=== PATIENT | male | born 1945 | race Caucasian/White ===

== ENCOUNTER 2017-06-27 05:09 | Observation (INO) | payer OTHER ==
[~2017-06-27] VITALS: Ht 170.2 cm; Wt 103.7 kg
[~2017-06-27 05:09] MED LIST: ALLOPURINOL300 MG PO; AMARYL4 MG PO; ASPIR-TRIN325 M1 PO; ASPIRIN EC325 MG PO; ASPIRIN325 MG PO; ASPIRIN81 M1 PO; ASPIRIN81 M2 PO; BENICAR HCT 201 EACH PO; BENICAR20 MG PO; CALCIUM 600 +1 EAC3 PO; CALCIUM PO; CARDURA4 MG PO; CENTRUM SILVER1 EAC3 PO; CINNAMON BARK500 MG PO; CINNAMON500 MG PO; Cinnamon Bark PO; DAILY VITAMIN1 EAC5 PO; ENDOCET 5-3251 EACH PO; Elavil PO; FIBER LAXATIVE500 MG PO; FIBER LAXATIVE625 M1 PO; FIBER500 MG PO; FISH OIL 1,2001 EAC4 PO; FLOMAX0.4 MG PO; GABAPENTIN300 MG PO; HYDROCODON-ACE1 EAC7 PO; HYDRODIURIL,O12.5 M2 PO; IRON325 M1 PO; LANTUS 3 M100 UNITS/ SC; LANTUS 3 M100 UNITS1 SC; LEVEMIR FL100 UNIT/1 SC; LIPITOR40 MG PO; LISINOPRIL-HCT1 EAC3 PO; LISINOPRIL10 MG PO; LYRICA75 MG PO; NEURONTIN300 MG PO; NEURONTIN600 MG PO; NOVOLOG PE100 UNITS/ SC; OMEPRAZOLE40 M1 PO; OXYCODONE HCL5 MG PO; Oyst-Cal D, Oscal W/ PO; PERCOCET 5/31 TABLET PO; PREDNISONE1 MG PO; PROAIR HFA8.5 GM IH; PROZAC20 MG PO; Prozac PO; SENOKOT S,PE1 TABLET PO; SPIRIVA1 INHALATI IH; ST. JOSEPH ASPI81 MG PO; SYNTHROID50 MCG PO; TARKA PO; TOPAMAX25 MG PO; TRADJENTA5 MG PO; TRAMADOL HCL100 MG PO; TRAMADOL HCL50 MG PO; Tylenol Regular Stre PO; VERAPAMIL HCL180 MG PO; VITAMIN D1000 INTUN PO; Zyloprim PO
[2017-06-27 05:59] LABS: HEMATOCRIT 32.5 % (38.0-50.0); MCH 31.1 PG (29.0-34.0); MCHC 32.6 G/DL (30.0-36.0); MCV 95.3 FL (86-99); MEAN PLAT.VOLUME 8.7 uM^3 (9.0-12.4); PLATELET COUNT 312 K/uL (156-360); RBC DIS.WIDTH-CV 12.9 % (11.8-14.6); RBC DIS.WIDTH-SD 44.8 % (39-53); RED BLOOD COUNT 3.41 M/uL (4.00-5.50); WHITE BLOOD COUNT 12.2 K/uL (4.1-10.2)
[2017-06-27 06:13] LABS: CHLORIDE 105 mEq/L (99-109); POTASSIUM 3.5 mEq/L (3.7-5.4); SODIUM 142 mEq/L (136-147)
[2017-06-27 06:16] LABS: GLUCOSE 62 mg/dL (70-99)
[2017-06-27 06:17] LABS: ANION GAP 10 MEQ/L (2-14)
[2017-06-27 06:18] LABS: TOTAL BILIRUBIN 0.6 mg/dL (0.0-1.0)
[2017-06-27 06:19] LABS: ALKALINE PHOSPHATASE 123 IU/L (3-129); GFR ESTIMATE (CALCULATED) 58 mL/min/
[2017-06-27 06:20] LABS: UREA NITROGEN (BUN) 30 mg/dL (9-23)
[2017-06-27 06:21] LABS: PROTHROMBIN TIME 11.2 SEC (10.2-12.9); TROP-I INTERPRETATION NEGATIVE; TROPONIN-I < 0.01 ng/mL (0.0-0.30)
[2017-06-27 06:23] LABS: LIPASE 64 U/L (1.0-51.0); PTT 30.2 SEC (25-37)
[2017-06-27] MEDS ORDERED: LEVEMIR FL100 UNIT/1 SC ×2 (09:02)
[2017-06-27] MEDS ORDERED: NOVOLOG PE100 UNITS/ SC (09:03)
[2017-06-27] MEDS ORDERED: TOPIRAMATE25 MG PO (09:05)
[2017-06-27] MEDS ORDERED: FLUOXETINE HCL20 MG PO (09:05)
[2017-06-27 09:33] LABS: POINT-OF-CARE METER ID UU14100415
[2017-06-27 09:54] VITALS: BP 140/68
[2017-06-27 11:23] VITALS: BP 126/59
[2017-06-27 12:33] LABS: POINT-OF-CARE METER ID UU13113700
[2017-06-27 13:12] LABS: TROP-I INTERPRETATION NEGATIVE; TROPONIN-I < 0.01 ng/mL (0.0-0.30)
[2017-06-27 16:11] VITALS: BP 117/78
[2017-06-27 17:21] LABS: POINT-OF-CARE METER ID UU13113700
[2017-06-27 18:59] LABS: TROP-I INTERPRETATION NEGATIVE; TROPONIN-I < 0.01 ng/mL (0.0-0.30)
[2017-06-27 19:48] VITALS: BP 148/67
[2017-06-27 21:04] LABS: POINT-OF-CARE METER ID UU13113700
[2017-06-27 23:53] VITALS: BP 143/61
[2017-06-28 04:03] VITALS: BP 109/51
[2017-06-28 05:19] LABS: HEMATOCRIT 29.8 % (38.0-50.0); MCH 31.7 PG (29.0-34.0); MCHC 33.2 G/DL (30.0-36.0); MCV 95.5 FL (86-99); PLATELET COUNT 287 K/uL (156-360); RBC DIS.WIDTH-CV 12.9 % (11.8-14.6); RBC DIS.WIDTH-SD 44.7 % (39-53); RED BLOOD COUNT 3.12 M/uL (4.00-5.50); WHITE BLOOD COUNT 9.2 K/uL (4.1-10.2)
[2017-06-28 06:03] LABS: ANION GAP 9 MEQ/L (2-14); CHLORIDE 107 MEQ/L (99-109); GFR ESTIMATE (CALCULATED) 49 mL/min/; POTASSIUM 3.9 MEQ/L (3.7-5.4); SAMPLE HEMOLYSIS CHECK 0; SAMPLE ICTERIC CHECK 0; SAMPLE LIPEMIA CHECK 0; SODIUM 142 MEQ/L (136-147); UREA NITROGEN (BUN) 27 mg/dL (9-23)
[2017-06-28 06:08] LABS: GLUCOSE 123 mg/dL (70-99)
[2017-06-28 07:35] VITALS: BP 125/61
[2017-06-28 12:29] VITALS: BP 122/59
== END 2017-06-28 13:00 | disposition home or self-care (01) ==
LOC: EME → EDBD 05:09 → EME 05:09 → EDOF 08:40 → 5WEST 08:40 → ENRESERV 08:44 → 5WEST 09:40
PROVIDERS: Emergency Medicine; Internal Medicine
DX: R07.9 Chest pain, unspecified (principal); E11.9 Type 2 diabetes mellitus without complications; Z79.4 Long term (current) use of insulin; D64.9 Anemia, unspecified; D72.829 Elevated white blood cell count, unspecified; I10 Essential (primary) hypertension; J45.909 Unspecified asthma, uncomplicated; G89.29 Other chronic pain; M54.5 Low back pain; F43.10 Post-traumatic stress disorder, unspecified; M48.02 Spinal stenosis, cervical region; G47.30 Sleep apnea, unspecified; Z87.820 Personal history of traumatic brain injury; Z96.651 Presence of right artificial knee joint; R68.84 Jaw pain; K21.9 Gastro-esophageal reflux disease without esophagitis; Z79.82 Long term (current) use of aspirin; Z96.612 Presence of left artificial shoulder joint; F17.200 Nicotine dependence, unspecified, uncomplicated
CPT/HCPCS: 71020; 71275; 80048; 80053; 82948; 83690; 83880; 84484; 85027; 85379; 85610; 85730; 93005; 99281; 99284; G0378; J1650; J1815; J2270; J7030

== ENCOUNTER 2018-06-30 22:27 | Emergency (ER) | payer OTHER ==
[~2018-06-30] VITALS: Ht 170.2 cm; Wt 106.8 kg
[~2018-06-30 22:27] MED LIST changes: +FLUOXETINE HCL20 MG PO; +TOPIRAMATE25 MG PO
[2018-07-01] MEDS ORDERED: VIGAMOX 0.60 DROP/3 RIGHT EYE (01:00)
[2018-07-01] MEDS ORDERED: GENTAK3.5 GM RIGHT EYE (01:00)
[2018-07-01 01:51] VITALS: BP 148/79
== END 2018-07-01 01:52 | disposition home or self-care (01) ==
LOC: EME 22:27
DX: H10.9 Unspecified conjunctivitis (principal); S05.01XA Injury of conjunctiva and corneal abrasion without foreign body, right eye, initial encounter; E11.9 Type 2 diabetes mellitus without complications; J45.909 Unspecified asthma, uncomplicated; E78.5 Hyperlipidemia, unspecified; Z72.0 Tobacco use; Z96.653 Presence of artificial knee joint, bilateral; Z96.611 Presence of right artificial shoulder joint; Z96.612 Presence of left artificial shoulder joint
CPT/HCPCS: 99281; 99284